=== PATIENT | male | born 1970 | race African-American/Black ===

== ENCOUNTER 2016-09-17 04:25 | Emergency (ER) | payer MEDICAID ==
[~2016-09-17] VITALS: Ht 172.7 cm; Wt 98.0 kg
[2016-09-17] MEDS ORDERED: IBUPROFEN 600MG TABLET PO ONE (07:30)
[2016-09-17 09:24] LABS: *AMPHETAMINES SCREEN URINE PRESUMTIVE POSITIVE (NEGATIVE); *BARBITURATES SCREEN URINE NEGATIVE (NEGATIVE); *BENZODIAZEPINES SCREEN URINE NEGATIVE (NEGATIVE); *COCAINE SCREEN URINE PRESUMTIVE POSITIVE (NEGATIVE); CANNABINOID URINE SCREEN NEGATIVE (NEGATIVE); METHADONE URINE SCREEN NEGATIVE (NEGATIVE); OPIATES URINE SCREEN NEGATIVE (NEGATIVE); PHENCYCLIDINE URINE SCREEN PRESUMTIVE POSITIVE (NEGATIVE)
[2016-09-17 09:30] VITALS: BP 131/77
== END 2016-09-17 10:42 | disposition home or self-care (01) ==
LOC: ER 04:27
DX: S50.312A Abrasion of left elbow, initial encounter (principal); F17.200 Nicotine dependence, unspecified, uncomplicated; F19.10 Other psychoactive substance abuse, uncomplicated; X58.XXXA Exposure to other specified factors, initial encounter; Y93.89 Activity, other specified; Y92.89 Other specified places as the place of occurrence of the external cause; Y99.8 Other external cause status; Z98.890 Other specified postprocedural states
CPT/HCPCS: 36415; 80305; 99284; G0482; Z7610

== ENCOUNTER 2016-09-17 11:27 | Emergency (ER) | payer MEDICAID | END 2016-09-17 12:04 | disposition left against medical advice (07) | LOC: ER 11:44 | DX: Z53.21 Procedure and treatment not carried out due to patient leaving prior to being seen by health care provider (principal) ==

== ENCOUNTER 2017-07-02 00:06 | Emergency (ER) | payer MEDICAID ==
[~2017-07-02] VITALS: Ht 172.7 cm; Wt 66.0 kg
[2017-07-02] MEDS ORDERED: ACETAMINOPHEN 325MG TABLET PO ONE (05:15)
[2017-07-02] MEDS ORDERED: KETOROLAC 60MG/2ML VIAL IM ONE (06:00)
[2017-07-02 09:08] VITALS: BP 110/73
== END 2017-07-02 09:11 | disposition home or self-care (01) ==
LOC: ER 00:06
DX: S63.256A Unspecified dislocation of right little finger, initial encounter (principal); S63.511A Sprain of carpal joint of right wrist, initial encounter; F10.20 Alcohol dependence, uncomplicated; Y04.0XXA Assault by unarmed brawl or fight, initial encounter; Y93.89 Activity, other specified; Y92.89 Other specified places as the place of occurrence of the external cause; Y99.8 Other external cause status
CPT/HCPCS: 26725; 29125; 70450; 73130; 96372; 99284; J1885; Z7610; 26770

== ENCOUNTER 2020-07-09 16:43 | Emergency (ER) | payer MEDICAID ==
[~2020-07-09] VITALS: Ht 177.8 cm; Wt 73.0 kg
[2020-07-09] MEDS ORDERED: KETOROLAC 15MG/ML VIAL IV ONE (18:00)
[2020-07-09] MEDS ORDERED: SODIUM CHLORIDE 0.9% 1,000 ML IV ONE (18:00)
[2020-07-09 18:27] LABS: BASOPHILS % 0.5 % (0.0-2.0); EOSINOPHILS % 4.7 % (0.0-5.0); HEMATOCRIT. 39.8 % (42.0-52.0); HEMOGLOBIN. 13.4 g/dL (14.0-18.0); LYMPHOCYTES % 38.3 % (20.0-50.0); MEAN CORPUSCULAR HEMOGLOBIN 30.1 pg (28.0-32.0); MEAN CORPUSCULAR VOLUME 89.7 fL (80.0-94.0); MEAN PLATELET VOLUME 6.6 fl (7.4-10.4); MONOCYTES % 8.1 % (2.0-8.0); NEUTROPHILS % 48.4 % (40.0-76.0); PLATELET 280 x1000/uL (130-400); RED BLOOD CELL COUNT 4.44 mill/uL (4.7-6.1); RED CELL DISTRIBUTION WIDTH 13.3 % (11.6-14.6)
[2020-07-09 18:37] LABS: CHLORIDE 108 mEq/L (98-107)
[2020-07-09 18:43] LABS: ETHANOL BLOOD 247 mg/dL
[2020-07-09] MEDS ORDERED: IBUP-2028 MT (19:08)
[2020-07-09 19:57] VITALS: BP 111/70
== END 2020-07-09 20:15 | disposition home or self-care (01) ==
LOC: ER 16:43
DX: R41.82 Altered mental status, unspecified (principal); M54.2 Cervicalgia; F10.129 Alcohol abuse with intoxication, unspecified; Y90.8 Blood alcohol level of 240 mg/100 ml or more
CPT/HCPCS: 36415; 70450; 72125; 80053; 80320; 85025; 93005; 96361; 96374; 99285; J1885; J7030; Z7610; G0480